=== PATIENT | female | born 1960 | race Caucasian/White ===

== ENCOUNTER 2025-03-14 10:47 | Day surgery (SDC) | payer MEDICARE ==
[2025-03-14] MEDS ORDERED: fentaNYL 50 MCG/ML SDV ONE (11:19)
[2025-03-14] MEDS ORDERED: Propofol 200 MG/20 ML SDV ONE (11:19)
[2025-03-14] MEDS: Lactated Ringers 1,000 ML IV SCH (11:29)
== END 2025-03-14 13:30 | disposition home or self-care (01) ==
LOC: JP.SDS 10:47
PROVIDERS: ATTEND Surgery
DX: Z01.818 Encounter for other preprocedural examination (principal); K29.70 Gastritis, unspecified, without bleeding
CPT/HCPCS: 00731; 43239; 87081; 88305; J2704; J3010; J7120